=== PATIENT | male | born 1955 | race Caucasian/White ===

== ENCOUNTER → 2017-05-05 | Outpatient (CLI) | payer OTHER ==
[~2017-05-05] MED LIST: ASPI325T39 PO; BUPR-83 PO; DIAZ-165 PO; GLC500 PO; GLUCTAB7 PO; LISI-461 PO; OMEG10007 PO; SAW450CA5 PO; SERT-234 PO; TEST1GEL12 TOP; VITACAP26 PO; ZINC1TAB4 PO
[2017-05-05 17:08] LABS: BASO % 0.6 %; BASO ABS # 0.05 K/uL (0-0.2); COMPLETE YES; EOS % 6.4 %; HEMATOCRIT 42.7 % (42-52); IG% 0.4 %; LYMPH % 42.2 %; LYMPH ABS # 3.34 K/uL (1.2-3.4); MEAN CELL VOLUME 89.9 fL (80-100); MEAN CORPUSCULAR HEMOGLOBIN 30.5 pg (25-34); MEAN PLATELET VOLUME 10.9 fL (7.4-10.4); NEUT % 40.4 %; PLATELET COUNT 283 K/uL (130-400); RED BLOOD COUNT 4.75 M/uL (4.7-6.1); WHITE BLOOD COUNT 7.92 K/uL (4.8-10.8)
[2017-05-05 17:38] LABS: ALT/SGPT 25 U/L (12-78); AST/SGOT 13 U/L (15-37); BLOOD UREA NITROGEN 17 mg/dl (7-18); CALCIUM 8.6 mg/dl (8.5-10.1); CARBON DIOXIDE 27 mmol/L (21-32); CHLORIDE 106 mmol/L (98-107); CHOLESTEROL 179 mg/dl (0-200); CREATININE 0.94 mg/dl (0.60-1.40); GLUCOSE 101 mg/dl (70-99); POTASSIUM 4.4 mmol/L (3.5-5.1); SODIUM 139 mmol/L (136-145); TRIGLYCERIDES 168 mg/dl (0-150); VERY LOW DENSITY LIPOPROT CALC 34 mg/dl
[2017-05-05 17:47] LABS: ALB/GLOB RATIO 0.9 (0.9-2); ALKALINE PHOSPHATASE 88 U/L (45-117); HDL CHOLESTEROL 30 mg/dl; LDL CHOLESTEROL CALCULATED 115 mg/dl; TOTAL IRON BINDING CAPACITY 322 mcg/dl (250-450)
[2017-05-06 06:09] LABS: ESTIMATED AVERAGE GLUCOSE 128 mg/dl; HA1C FLAG Normal (Normal)
== END | disposition home or self-care (01) ==
LOC: C.LABBC 14:16
PROVIDERS: ATTEND Family Medicine
DX: E88.81 Metabolic syndrome and other insulin resistance (principal); E55.9 Vitamin D deficiency, unspecified; D51.9 Vitamin B12 deficiency anemia, unspecified; E78.9 Disorder of lipoprotein metabolism, unspecified; R53.83 Other fatigue

== ENCOUNTER 2023-09-21 17:29 | Inpatient (IN) ==
--- NOTE | 2023-09-21 17:54 | Emergency Department Note ---
History of Present Illness General Chief complaint: Shortness of Breath/Dyspnea Stated complaint: SHORTNESS OF BREATH Time Seen by Provider: 09/21/23 17:40 Source: patient, RN notes reviewed and old records reviewed (08/18/23-outpatient primary care visit for wellness) Mode of arrival: ambulatory Limitations: no limitations History of Present Illness This patient is a 67-year-old male who comes in with shortness of breath. He states he was short of breath for quite a while he got better after he lost some weight over the last 2 days its gotten worse is mostly dyspnea on exertion. no chest pain. No diaphoresis. No neck or back pain has had some nausea no fever or chills no blood or melena stool no abdominal pain no urinary symptoms no fever chills no focal numbness or weakness he does have an inhaler which she had no change with he does have history of mild COPD no lower extremity pain or swelling no recent weight loss or gain. Home Medications Medication Instructions Recorded Confirmed Type ascorbic acid (vitamin C) 1,000 mg 1 g PO QAM 11/05/18 09/21/23 History tablet (Vitamin C) glucosamine sulf dipot 1 cap PO QAM 11/05/18 09/21/23 History chlr,msm,chond 550 mg-C 30 mg-allie 1 mg capsule (Glucosamine Chondroitin) omega 0-lpw-umn-fish oil 1,000 mg 1 cap PO QAM 11/05/18 09/21/23 History (120 mg-180 mg) capsule (Fish Oil) saw palmetto 450 mg capsule 450 mg PO QAM 11/05/18 09/21/23 History zinc gluconate 100 mg tablet 100 mg PO QAM 11/05/18 09/21/23 History cyekfbj-nqmzjzqgqzaah-shwxaoxi 250 1 tab PO DIRECTED PRN HEADACHES 07/04/22 09/21/23 History mg-250 mg-65 mg tablet (Excedrin Extra Strength) ibuprofen 200 mg tablet 400 mg PO BID PRN Pain 07/08/22 09/21/23 History albuterol sulfate 90 mcg/actuation 1 inh inhalation QID PRN Shortness 12/25/22 09/21/23 History aerosol inhaler Of Breath Or Wheezing bupropion HCl 450 mg 24 hr tablet, 450 mg PO DAILY #90 tabs 07/02/23 09/21/23 Rx extended release levothyroxine 25 mcg tablet 25 mcg PO QAM #90 tabs 07/02/23 09/21/23 Rx lisinopril 10 mg tablet 10 mg PO QAM #90 tabs 07/02/23 09/21/23 Rx testosterone 1 % (50 mg/5 gram) 1 packet transdermal DAILY #150 07/02/23 09/21/23 Rx transdermal gel packet grams diazepam 5 mg tablet 5 mg PO QID PRN Anxiety #120 tabs 07/14/23 09/21/23 Rx fluticasone 100 mcg-salmeterol 50 1 inh inhalation BID #3 Inhalers 07/24/23 09/21/23 Rx mcg/dose blistr powdr for inhalation (Wixela Inhub) gabapentin 100 mg capsule 100 mg PO TID #60 caps 07/30/23 09/21/23 Rx diclofenac potassium 50 mg tablet 50 mg PO TID PRN pain #30 tabs 08/18/23 09/21/23 Rx sertraline 100 mg tablet 150 mg (1.5 x 100 mg) PO QAM #45 08/28/23 09/21/23 Rx tabs Allergies Allergy/AdvReac Type Severity Reaction Status Date / Time No Known Allergies Allergy Verified 09/21/23 19:03 Past Med/Surg History Medical History Vomiting Abdominal pain Kidney lesion, [place], left Dyspnea Positive colorectal cancer screening using Cologuard test Dyspnea on exertion History of tobacco abuse Multiple pulmonary nodules determined by computed tomography of lung Lumbar vertebral fracture r/t recent fall. (~06/23/20) Per 06/23/[address] scan= " Subtle age-indeterminate fracture along the left lateral inferior endplate of T11 extending into a left lateral osteophyte. Likely chronic fracture of a left lateral osteophyte at L2. No acute compression deformity or retropulsion identified." H/O retained foreign body fully removed splinter from left arm Positive colorectal cancer screening using Cologuard test Encounter for pre-operative examination Osteoarthritis Hypothyroidism Prediabetes Melanoma of back Depression Hypertension Sleep apnea cpap Melanoma Anxiety and depression Surgical History S/P rotator cuff surgery History of total right hip replacement History of colonoscopy History of Mohs micrographic surgery for skin cancer History of wisdom tooth extraction Family History Aunt Family history of diabetes mellitus Father Lung cancer Grandfather Stroke Myocardial infarction Grandmother Stroke Myocardial infarction Other No family history of adverse response to anesthesia Denies family history of Ovarian cancer Prostate cancer Breast cancer Colorectal cancer Social History Smoking Status: Former smoker Tobacco Type: Cigarettes Age Started Using Tobacco: 20; Age Quit Using Tobacco: 62; packs per day: 0.5; Cigarettes Per Day: 10; Smoking End Date: 3 years ago; Second Hand Exposure: No; Do You Dip or Chew Tobacco: No; Tobacco Cessation Education Requested by Patient: No Hx Alcohol Use: No Hx Substance Use: No Preferred Language: Cambodian Communication Ability: Effective Visual Impairment: Partially Limited School Transportation Director Required: No Beliefs That Will Affect Care: None Current Living Situation: Alone current occupational status: retired How many Children do You have: 0 Other Information That Helps Us Care for You: No Feels Safe at Home: Yes Safety Concerns: Feels Safe At This Time Childhood Exposure to Second-Hand Smoke: No caffeine: Yes Dental Care, Regularly: Yes Physical Activity Frequency: Does not Exercise Seatbelt Use: always Sunscreen Use: No Assistive Devices: CPAP and Glasses Review of Systems A total of 10 systems reviewed and were otherwise negative Physical Exam Vital Signs Vital Signs - 24 hr 09/21/23 17:33 09/21/23 17:51 09/21/23 17:51 Temperature 36.9 C Temperature Source Temporal Artery Scan Pulse Rate 74 Pulse Rate [Apical] 72 Respiratory Rate 18 24 Respiratory Effort / Characteristics Non-Labored Respiratory Depth Normal Normal Blood Pressure 169/114 H Blood Pressure [Right Arm] 180/102 H Blood Pressure Mean 132 Blood Pressure Mean [Right Arm] 128 Blood Pressure Position Sitting Pulse Oximetry 92 94 Oxygen Delivery Method Room Air Room Air Room Air Oxygen Flow Rate 94 Sepsis Recent Fever Within 48 Hours No Sepsis New/Unexplained Change in Mental Status N/A Sepsis Action Taken by Nursing No Action Required 09/21/23 17:54 09/21/23 17:55 Temperature Temperature Source Pulse Rate 76 Pulse Rate [Apical] Respiratory Rate Respiratory Effort / Characteristics Respiratory Depth Blood Pressure Blood Pressure [Right Arm] Blood Pressure Mean Blood Pressure Mean [Right Arm] Blood Pressure Position Pulse Oximetry 94 Oxygen Delivery Method Room Air Oxygen Flow Rate Sepsis Recent Fever Within 48 Hours Sepsis New/Unexplained Change in Mental Status Sepsis Action Taken by Nursing General: Well developed well nourished oqn-vsl-ehjclytyb older male who in no acute distress, breathing comfortably on room air. Normal speech HEENT: Normal cephalic atraumatic. Pupils are equal round and reactive to light. Sclera are anicteric. extraocular movements are intact. Oropharynx is pink with moist mucous membranes. No swelling of the mouth lips or tongue. Neck: Supple with a midline trachea. No meningeal signs or stiffness, no JVD or bruits. No Stridor. Chest: Clear to auscultation on the left but diminished on the right. No increased work of breathing. Heart: Regular rate and rhythm without murmurs or gallops. Abdomen: Soft nontender, nondistended without rebound guarding or rigidity. Extremities: No cyanosis clubbing or edema. No calf tenderness or assymetry Spine/Back. Non tender to palpation. No CVA tenderness Skin: Good turgor without rashes. Neurologic exam: Cranial nerves two through 12 are intact. Motor and sensation are intact and symmetrical throughout. Course Administered Medications Gabapentin (Gabapentin 100 Mg Cap) 100 mg PO TID [facility] Stop: 10/21/23 21:05 Last Admin: 09/21/23 21:36 Dose: 100 mg Documented By: ALONZO Potassium Chloride/Sodium Chloride (Normal Saline W/20 Meq Kcl) 20 meq in 1,000 mls @ 60 mls/hr IV .[id number] [facility] Stop: 10/21/23 21:05 Last Admin: 09/21/23 21:36 Dose: 60 mls/hr Documented By: ALONZO Discontinued Medications Piperacillin Sod/Tazobactam Sod (Zosyn) 4.5 gm in 100 mls @ 200 mls/hr IV NOW ONE Stop: 09/21/23 19:31 Last Infusion: 09/21/23 20:57 Dose: Infused Documented By: MARIA ISABEL Admin: 09/21/23 20:26 Dose: 200 mls/hr Documented By: RAJAT Ioversol (Optiray 320 125ml) 117 ml IV ONCE ONE Stop: 09/21/23 18:42 Last Admin: 09/21/23 18:41 Dose: 117 ml Documented By: CORINA Critical Care Time Critical Care Time: Yes Total Critical Care Time: 30 Due to the patient's chief complaint of shortness of breath with some mild hypoxemia, decreased breath sounds and concern for acute pulmonary issues with stat chest x-ray and workup needed as well as consultation and frequent reassessment and as well as IV antibiotics and supplemental oxygen, I have personally spent greater than 30 minutes of critical care time in the direct management of this patient. This includes bedside care, interpretation of diagnostic studies, and testing, discussion with consultants, patient, and family members, and other required patient management activities. This 30 minutes is in excess of all separately billable procedures. Medical Decision Making Differential Diagnosis Acute coronary syndrome, arrhythmia, pneumothorax, pulmonary effusion, infection, PE, electrolyte or metabolic Medical Records Attestation: I reviewed the patient's medical records. Home Medications Current Medication List: was personally reviewed by me Laboratory Data Attestation: I reviewed the patient's lab results. 09/21/23 17:45 09/21/23 17:45 Lab Results 09/21/23 09/21/23 09/21/23 Range/Units 17:45 18:18 19:22 WBC 7.97 (4.8-10.8) K/ul RBC 4.65 L (4.70-6.10) M/uL Hgb 14.2 (14.0-18.0) g/dl Hct 42.4 (42.0-52.0) % MCV 91.2 (80.0-100.0) fL MCH 30.5 (25.0-34.0) pg MCHC 33.5 (32.0-36.0) g/dL RDW Std Deviation 41.5 (36.4-46.3) fL RDW Coeff of Fito 12.4 (11.5-14.5) % Plt Count 382 (130-400) K/uL MPV 9.3 L (9.4-12.4) fL Immature Gran % (Auto) 0.3 % Neut % (Auto) 58.7 % Lymph % (Auto) 23.7 % Pierce % (Auto) 9.8 % Eos % (Auto) 6.5 % Baso % (Auto) 1.0 % Neut # (Auto) 4.68 (1.40-6.50) K/uL Lymph # (Auto) 1.89 (1.20-3.40) K/uL Pierce # (Auto) 0.78 H (0.11-0.59) K/uL Eos # (Auto) 0.52 H (0.00-0.50) K/uL Baso # (Auto) 0.08 (0.00-0.20) K/uL Immature Gran # (Auto) 0.02 (0.01-0.20) K/uL PT 11.4 (9.0-12.0) Seconds INR 1.0 (0.9-1.1) APTT 32 H (21-31) Seconds PTT Ratio 1.1 D-Dimer 1600 H* (0-500) ug/L FEU Sodium 137 (136-145) mmol/L Potassium 3.7 (3.5-5.1) mmol/L Chloride 103 (98-107) mmol/L Carbon Dioxide 25 (21-32) mmol/L Anion Gap 9 (3-11) BUN 9 (6-23) mg/dl Creatinine 0.81 (0.6-1.4) mg/dl Est Cr Clr Drug Dosing 107.5 ml/min Est GFR ( Amer) 105.8 ml/min Est GFR (Non-Af Amer) 91.3 ml/min BUN/Creatinine Ratio 11.1 (10-20) Glucose 99 (70-99(Fasting)) mg/dl Lactate 1.0 (0.4-2.0) mmol/L Calcium 9.1 (8.6-10.3) mg/dl Total Bilirubin 0.4 (0.2-1.0) mg/dl AST 16 (13-39) U/L ALT 13 (7-52) U/L Alkaline Phosphatase 109 H (34-104) U/L Troponin I High Sens 8.7 (0-20) pg/ml Total Protein 7.1 (6.0-8.3) gm/dl Albumin 3.8 (3.4-5.0) gm/dl Globulin 3.3 (2.5-4.0) gm/dl Albumin/Globulin Ratio 1.2 (0.9-2) Lipase 13 (11-82) U/L Procalcitonin < 0.02 (0-0.5) ng/ml Adenovirus (PCR) Not Detected (NotDetected) B. pertussis DNA (PCR) Not Detected (NotDetected) B.parapertussis DNA PCR Not Detected (NotDetected) C. pneumoniae DNA (PCR) Not Detected (NotDetected) Coronavirus OC43 (PCR) Not Detected (NotDetected) Coronavirus HKU1 (PCR) Not Detected (NotDetected) Coronavirus 229E (PCR) Not Detected (NotDetected) SARS-CoV-2 (PCR) Not Detected (NotDetected) Coronavirus NL63 (PCR) Not Detected (NotDetected) Human Metapneumovir PCR Not Detected (NotDetected) Influenza Type A (PCR) Not Detected (NotDetected) Influenza Type B (PCR) Not Detected (NotDetected) M. pneumoniae (PCR) Not Detected (NotDetected) Parainfluenza 1 (PCR) Not Detected (NotDetected) Parainfluenza 2 (PCR) Not Detected (NotDetected) Parainfluenza 3 (PCR) Not Detected (NotDetected) Parainfluenza 4 (PCR) Not Detected (NotDetected) RSV (PCR) Not Detected (NotDetected) Entero/Rhino (PCR) Not Detected (NotDetected) Imaging Data Attestation: I personally reviewed and interpreted this imaging study as follows: My Impression: Chest x-raythere is a large pleural effusion on the right. No pneumothorax seen. Radiologist's Impression: Chest X-Ray 09/21/23 17:48 XR chest 1V portable CLINICAL HISTORY: Chest pain, nonspecific TECHNIQUE: Single frontal radiograph of the chest was obtained. Comparison: Comparison is made to chest radiograph 08/18/2023 FINDINGS: No lines and tubes are seen. Cardiomegaly is noted. The lungs are clear. Large pleural effusion is seen. IMPRESSION: Interval development of a large right pleural effusion with underlying atelectasis. ACT 112: Negative or not required by law. Electronically signed by: Say Duffy M.D. 09/21/2023 6:20 PM Chest CTA 09/21/23 18:02 CT angio chest PE protocol CLINICAL HISTORY: PE TECHNIQUE: Multidetector row helical CT of the chest was performed with angiographic protocol. Coronal and sagittal reformations were obtained. Coronal and sagittal MIPS were obtained from the axial data set and were submitted for review. Automated dose lowering techniques and/or adjustment according to patient size were utilized for this exam. CT DOSE: 966.77 mGy.cm Comparison: Comparison is made to CT chest 07/01/2023 and chest radiograph 09/21/2023 FINDINGS: Lungs and pleura: Large right pleural effusion is seen with underlying atelectasis. A few small consolidative densities are seen in the left upper lobe. Heart and pericardium: Heart size is normal. No pericardial effusion. Vessels: No evidence of pulmonary embolism. Mediastinum and mickey: Unremarkable. Chest wall and lower neck: Unremarkable. Abdomen: Partial visualization of left renal cyst seen on prior CT. Bones: Degenerative changes in the thoracic spine. Subacute appearing fractures of the anterior right ribs noted. A few sclerotic foci in the left ribs may represent bone islands. IMPRESSION: 1. No evidence of pulmonary embolus. Large right pleural effusion seen with underlying atelectasis. 2. A few tiny foci of consolidative densities in the left upper lobe may represent infectious/inflammatory process. ACT 112: Negative or not required by law. Electronically signed by: Say Duffy M.D. 09/21/2023 6:51 PM ECG Data Attestation: I personally reviewed and interpreted this ECG as follows: Indication: + SOB/dyspnea Rate (beats per minute): 75 Rhythm: + normal sinus ECG Intervals/blocks: + Normal QRS, + Normal QT and + Normal NC ECG [place]: + Normal ECG ST segments: + Normal ST segments ECG Findings: no PACs or no PVCs Comparison ECG Date: from (11/15/22) Change: no significant change MDM Narrative This patient comes in as described above. He is placed in room C3 . he looks well on my exam and his symptoms are mostly dyspnea on exertion. He has no wheezes I was concerned his breath sounds sound diminished on the right compared to the left so I got a chest x-ray EKG and multiple blood testing he was reassessed frequently. I called radiology to get this done stat and they did. He does not have a pneumothorax but has a large pleural effusion. He has nothing else to suggest infection at this point he has no white count or fever and has had no recent cough. I did order bio fire as well which was unremarkable. His D-dimer was mildly elevated so a CT angiography was obtained and shows no PE there is a pleural effusion there may be some inflammatory areas. I did add blood cultures lactic acid and procalcitonin and the lactic acid and procalcitonin within normal limits which would go against sepsis he was given antibiotics with Zosyn 4.5 g IV to cover the possible infection. This could be related to other pulmonary etiology such as malignancy or cardiac. At this point there is no evidence of PE. I do think he needs to be admitted/observed he may need further pulmonary workup with potentially bronchoscopy and or thoracentesis. I have discussed the case at length with Dr. Vazquez who promptly came in and saw the patient ER. The patient was placed on oxygen nasal cannula 2 L as his O2 sat was in the low 90s but he was breathing very comfortably at rest and his symptoms were dyspnea on exertion. Continuous cardiac monitoring. Orders placed in EMR for continuous sulky driver call upon my evaluation patient noted to be in normal sinus rhythm with a rate of 70 Impression & Plan SOB (shortness of breath), Pleural effusion, D-dimer, elevated, History of COPD, Lab test negative for COVID-19 virus Discharge Plan Visit Data Chief Complaint: Shortness of Breath/Dyspnea Stated Complaint: SHORTNESS OF BREATH ED Provider: Victor Manuel Ornelas Discharge Problem: SOB (shortness of breath), Pleural effusion, D-dimer, elevated, History of COPD, Lab test negative for COVID-19 virus Patient Disposition: Admitted As Inpatient Discharge Instructions Interventions: ED Discharge Assessment Last Done: 09/21/23 20:51
[2023-09-21 18:01] LABS: Basophils # (auto) 0.08 K/uL (0.00-0.20); Eosinophils # (auto) 0.52 K/uL (0.00-0.50); Eosinophils % (auto) 6.5 %; Hematocrit (blood only) 42.4 % (42.0-52.0); Hemoglobin 14.2 g/dl (14.0-18.0); Immature Granulocytes # (auto) 0.02 K/uL (0.01-0.20); Immature Granulocytes % (auto) 0.3 %; Lymphocytes # (auto) 1.89 K/uL (1.20-3.40); Lymphocytes % (auto) 23.7 %; Mean Corpuscular Hemoglobin 30.5 pg (25.0-34.0); Mean Corpuscular Hgb Conc 33.5 g/dL (32.0-36.0); Mean Corpuscular Volume 91.2 fL (80.0-100.0); Mean Platelet Volume 9.3 fL (9.4-12.4); Monocytes # (auto) 0.78 K/uL (0.11-0.59); Monocytes % (auto) 9.8 %; Neutrophils # (auto) 4.68 K/uL (1.40-6.50); Neutrophils % (auto) 58.7 %; Platelet Count 382 K/uL (130-400); RDW Coefficient of Variation 12.4 % (11.5-14.5); RDW Standard Deviation 41.5 fL (36.4-46.3); Red Blood Count 4.65 M/uL (4.70-6.10); White Blood Count 7.97 K/ul (4.8-10.8)
--- NOTE | 2023-09-21 18:23 | XRay Report ---
XR chest 1V portable CLINICAL HISTORY: Chest pain, nonspecific TECHNIQUE: Single frontal radiograph of the chest was obtained. Comparison: Comparison is made to chest radiograph 08/18/2023 FINDINGS: No lines and tubes are seen. Cardiomegaly is noted. The lungs are clear. Large pleural effusion is se en. IMPRESSION: Interval development of a large right pleural effusion with underlying atelectasis. ACT 112: Negative or not required by law. Electronically signed by: Say Duffy M.D. 09/21/2023 6:20 PM
[2023-09-21 18:27] LABS: Albumin Globulin Ratio 1.2 (0.9-2); Albumin Level 3.8 gm/dl (3.4-5.0); BUN Creatinine Ratio 11.1 (10-20); Bilirubin,Total 0.4 mg/dl (0.2-1.0); Calcium 9.1 mg/dl (8.6-10.3); Creatinine Clr Calc Pharmacy 107.5 ml/min; Est GFR (African American) 105.8 ml/min; Est GFR (Non-African American) 91.3 ml/min; Globulin 3.3 gm/dl (2.5-4.0); Potassium 3.7 mmol/L (3.5-5.1); Total Protein 7.1 gm/dl (6.0-8.3)
[2023-09-21 18:30] LABS: Partial Thromboplastin Ratio 1.1; Partial Thromboplastin Time 32 Seconds (21-31); Prothrombin Time 11.4 Seconds (9.0-12.0)
[2023-09-21 18:33] LABS: D Dimer 1600 ug/L FEU (0-500); Troponin I High Sensitivity 8.7 pg/ml (0-20)
[2023-09-21] MEDS: OPTIRAY 320 125ml IV ONE (18:41)
--- NOTE | 2023-09-21 18:54 | CT Scan Report ---
CT angio chest PE protocol CLINICAL HISTORY: PE TECHNIQUE: Multidetector row helical CT of the chest was performed with angiographic protocol. Cano l and sagittal reformations were obtained. Coronal and sagittal MIPS were obtained from the axial peter a set and were submitted for review. Automated dose lowering techniques and/or adjustment according to patient size were utilized for this exam. CT DOSE: 966.77 mGy.cm Comparison: Comparison is made to CT chest 07/01/2023 and chest radiograph 09/21/2023 FINDINGS: Lungs and pleura: Large right pleural effusion is seen with underlying atelectasis. A few small conso lidative densities are seen in the left upper lobe. Heart and pericardium: Heart size is normal. No pericardial effusion. Vessels: No evidence of pulmonary embolism. Mediastinum and mickey: Unremarkable. Chest wall and lower neck: Unremarkable. Abdomen: Partial visualization of left renal cyst seen on prior CT. Bones: Degenerative changes in the thoracic spine. Subacute appearing fractures of the anterior right ribs noted. A few sclerotic foci in the left ribs may represent bone islands. IMPRESSION: 1. No evidence of pulmonary embolus. Large right pleural effusion seen with underlying atelectasis. 2. A few tiny foci of consolidative densities in the left upper lobe may represent infectious/inflam matory process. ACT 112: Negative or not required by law. Electronically signed by: Say Duffy M.D. 09/21/2023 6:51 PM
[2023-09-21 19:29] LABS: Adenovirus PCR Not Detected (NotDetected); Bordetella parapertussis PCR Not Detected (NotDetected); Bordetella pertussis PCR Not Detected (NotDetected); Chlamydia pneumoniae PCR Not Detected (NotDetected); Coronavirus 229E PCR Not Detected (NotDetected); Coronavirus CoV-2 (COVID19)PCR Not Detected (NotDetected); Coronavirus HKU1 PCR Not Detected (NotDetected); Coronavirus NL63 PCR Not Detected (NotDetected); Coronavirus OC43PCR Not Detected (NotDetected); Human Metapneumovirus PCR Not Detected (NotDetected); Influenza A PCR Not Detected (NotDetected); Influenza B PCR Not Detected (NotDetected); Mycoplasma pneumoniae PCR Not Detected (NotDetected); Parainfluenza Virus 1 PCR Not Detected (NotDetected); Parainfluenza Virus 2 PCR Not Detected (NotDetected); Parainfluenza Virus 3 PCR Not Detected (NotDetected); Parainfluenza Virus 4 PCR Not Detected (NotDetected); Respiratory Syncytial VirusPCR Not Detected (NotDetected); Rhinovirus/Enterovirus PCR Not Detected (NotDetected)
--- NOTE | 2023-09-21 20:01 | History & Physical Report ---
Date of Service September 21, 2023 Assessment & Plan (1) Pleural effusion, right: (2) Multiple pulmonary nodules determined by computed tomography of lung: (3) History of tobacco abuse: (4) Dyspnea on exertion: (5) COPD (chronic obstructive pulmonary disease): (6) GERD (gastroesophageal reflux disease): (7) Hypertension: (8) Mood disorder: (9) Impaired glucose tolerance: (10) Hypothyroidism: Plan Large right pleural effusion/known pulmonary nodules/tobacco abuse history- Primary symptom that of worsening dyspnea on exertion especially in the past couple days Pleural effusion is new compared to 08/18/2023 Not likely to improve with furosemide 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 Quevedo Would likely benefit from thoracentesis for diagnostic and therapeutic purposes Will defer thoracentesis to Dr. Quevedo or interventional IR to perform Nasal cannula oxygen, titrate to keep pulse ox 92-94% He did receive a single dose of Zosyn 4.5 g IV from the ED [employer] testing negative D-dimer 1600, with CTA negative for PE Continue routine inhalers DuoNebs every 2 hours as needed N.p.o. after midnight NSS plus KCl 20 mEq at 80 mL/h x 1 L Mood disorder- Continue sertraline, gabapentin and bupropion Hypotestosteronism- Testosterone transdermal gel to continue History of Present Illness Chief Complaint: The patient presents to the emergency department with worsening shortness of breath for the past several days, in particular worsening over the past 2 days. Primary Care Provider: Ming Cole MD The patient is a 67-year-old male with past medical history including COPD, cervical disc disease, small vessel disease, history of tobacco abuse, hypothyroidism, mood disorder, hypertension, GERD, multiple pulmonary nodules followed routinely by pulmonology. The patient presents to the emergency department with worsening shortness of breath, and was noted to have a chest x- ray this visit showing a large right pleural effusion, that is new since 08/18/2023. Patient denies any recent travels or sick exposures, and has not had these symptoms in the past. He does follow regularly with pulmonology, for follow-up of pulmonary nodules, and was last seen on 07/22/2023. Allergies Allergy/AdvReac Type Severity Reaction Status Date / Time No Known Allergies Allergy Verified 09/21/23 19:03 Home Medications Medication Instructions Recorded Confirmed Type ascorbic acid (vitamin C) 1,000 mg 1 g PO QAM 11/05/18 09/21/23 History tablet (Vitamin C) glucosamine sulf dipot 1 cap PO QAM 11/05/18 09/21/23 History chlr,msm,chond 550 mg-C 30 mg-allie 1 mg capsule (Glucosamine Chondroitin) omega 1-ixa-gdn-fish oil 1,000 mg 1 cap PO QAM 11/05/18 09/21/23 History (120 mg-180 mg) capsule (Fish Oil) saw palmetto 450 mg capsule 450 mg PO QAM 11/05/18 09/21/23 History zinc gluconate 100 mg tablet 100 mg PO QAM 11/05/18 09/21/23 History kgdnpvh-ycawbsngrpnaz-cwtuidsg 250 1 tab PO DIRECTED PRN HEADACHES 07/04/22 09/21/23 History mg-250 mg-65 mg tablet (Excedrin Extra Strength) ibuprofen 200 mg tablet 400 mg PO BID PRN Pain 07/08/22 09/21/23 History albuterol sulfate 90 mcg/actuation 1 inh inhalation QID PRN Shortness 12/25/22 09/21/23 History aerosol inhaler Of Breath Or Wheezing bupropion HCl 450 mg 24 hr tablet, 450 mg PO DAILY #90 tabs 07/02/23 09/21/23 Rx extended release levothyroxine 25 mcg tablet 25 mcg PO QAM #90 tabs 07/02/23 09/21/23 Rx lisinopril 10 mg tablet 10 mg PO QAM #90 tabs 07/02/23 09/21/23 Rx testosterone 1 % (50 mg/5 gram) 1 packet transdermal DAILY #150 07/02/23 09/21/23 Rx transdermal gel packet grams diazepam 5 mg tablet 5 mg PO QID PRN Anxiety #120 tabs 07/14/23 09/21/23 Rx fluticasone 100 mcg-salmeterol 50 1 inh inhalation BID #3 Inhalers 07/24/23 09/21/23 Rx mcg/dose blistr powdr for inhalation (Wixela Inhub) gabapentin 100 mg capsule 100 mg PO TID #60 caps 07/30/23 09/21/23 Rx diclofenac potassium 50 mg tablet 50 mg PO TID PRN pain #30 tabs 08/18/23 Rx sertraline 100 mg tablet 150 mg (1.5 x 100 mg) PO QAM #45 08/28/23 09/21/23 Rx tabs Past Med/Surg History Medical History Vomiting Abdominal pain Kidney lesion, pechanga, left Dyspnea Positive colorectal cancer screening using Cologuard test Dyspnea on exertion History of tobacco abuse Multiple pulmonary nodules determined by computed tomography of lung Lumbar vertebral fracture r/t recent fall. (~06/23/20) Per 06/23/[address] scan= " Subtle age-indeterminate fracture along the left lateral inferior endplate of T11 extending into a left lateral osteophyte. Likely chronic fracture of a left lateral osteophyte at L2. No acute compression deformity or retropulsion identified." H/O retained foreign body fully removed splinter from left arm Positive colorectal cancer screening using Cologuard test Encounter for pre-operative examination Osteoarthritis Hypothyroidism Prediabetes Melanoma of back Depression Hypertension Sleep apnea cpap Melanoma Anxiety and depression Surgical History S/P rotator cuff surgery History of total right hip replacement History of colonoscopy History of Mohs micrographic surgery for skin cancer History of wisdom tooth extraction Family History Aunt Family history of diabetes mellitus Father Lung cancer Grandfather Stroke Myocardial infarction Grandmother Stroke Myocardial infarction Other No family history of adverse response to anesthesia Denies family history of Ovarian cancer Prostate cancer Breast cancer Colorectal cancer Social History Smoking Status: Former smoker Tobacco Type: Cigarettes Age Started Using Tobacco: 20; Age Quit Using Tobacco: 62; packs per day: 0.5; Cigarettes Per Day: 10; Smoking End Date: 3 years ago; Second Hand Exposure: No; Do You Dip or Chew Tobacco: No; Tobacco Cessation Education Requested by Patient: No Hx Alcohol Use: No Hx Substance Use: No Preferred Language: Uzbek Communication Ability: Effective Visual Impairment: Partially Limited Shirt Closer Required: No Beliefs That Will Affect Care: None Current Living Situation: Alone current occupational status: retired How many Children do You have: 0 Other Information That Helps Us Care for You: No Feels Safe at Home: Yes Safety Concerns: Feels Safe At This Time Childhood Exposure to Second-Hand Smoke: No caffeine: Yes Dental Care, Regularly: Yes Physical Activity Frequency: Does not Exercise Seatbelt Use: always Sunscreen Use: No Assistive Devices: CPAP and Glasses Review of Systems Review of Systems: the patient denies chest pain, palpitations, lower extremity swelling, sore throat, fevers, chills, sweats, nausea, vomiting, diarrhea , constipation, abdominal pain, pelvic pain, blood in urine or stool, dysuria, urinary frequency or urgency, lightheadedness, dizziness, headache, memory loss, loss of consciousness, rash, abnormal bruising or bleeding, imbalance, focal or generalized weakness, numbness or tingling in arms or legs, generalized arthralgias or myalgias, back or neck pain, or night sweats. The review of systems is otherwise negative other than for that already noted above, and at least 10 systems have been reviewed. Physical Exam Physical Exam: The patient is awake, alert and oriented 3, well developed and well nourished, normocephalic and atraumatic, sitting upright in bed and in no acute distress. HEENT--PERRL, EOMI, mucous membranes and oropharynx normal Neck--supple. No JVD. No bruits. Thyroid normal, trachea midline, no adenopathy. Heart--normal S1 and S2. No murmurs, rubs or gallops. Lungs--decreased breath sounds right base, otherwise normal examination. No respiratory distress, no accessory muscle use. Abdomen--normal bowel sounds and soft. Nontender. Nondistended. Obese Extremities--no cyanosis or clubbing. No edema. Dermatologic--normal skin turgor, normal color, no abnormal lymph nodes, no joellen h. Neurologic--cranial nerves II through XII grossly intact. Rheumatologic--normal range of motion. Psychiatric--normal affect. Results & Data Results & Data Vital Signs (Past 12 Hours) Vital Signs Temp Pulse Pulse Resp BP BP Pulse Ox 09/21/23 17:55 76 09/21/23 17:54 94 09/21/23 17:51 72 24 180/102 H 94 09/21/23 17:51 09/21/23 17:33 36.9 C 74 18 169/114 H 92 O2 Del Method O2 Flow Rate 09/21/23 17:55 09/21/23 17:54 Room Air 09/21/23 17:51 Room Air 09/21/23 17:51 Room Air 94 09/21/23 17:33 Room Air Laboratory Results Laboratory Results WBC 7.97 K/ul (4.8-10.8) 09/21/23 17:45 RBC 4.65 M/uL (4.70-6.10) L 09/21/23 17:45 Hgb 14.2 g/dl (14.0-18.0) 09/21/23 17:45 Hct 42.4 % (42.0-52.0) 09/21/23 17:45 MCV 91.2 fL (80.0-100.0) 09/21/23 17:45 MCH 30.5 pg (25.0-34.0) 09/21/23 17:45 MCHC 33.5 g/dL (32.0-36.0) 09/21/23 17:45 RDW Std Deviation 41.5 fL (36.4-46.3) 09/21/23 17:45 RDW Coeff of Fito 12.4 % (11.5-14.5) 09/21/23 17:45 Plt Count 382 K/uL (130-400) 09/21/23 17:45 MPV 9.3 fL (9.4-12.4) L 09/21/23 17:45 Immature Gran % (Auto) 0.3 % 09/21/23 17:45 Neut % (Auto) 58.7 % 09/21/23 17:45 Lymph % (Auto) 23.7 % 09/21/23 17:45 Barber % (Auto) 9.8 % 09/21/23 17:45 Eos % (Auto) 6.5 % 09/21/23 17:45 Baso % (Auto) 1.0 % 09/21/23 17:45 Neut # (Auto) 4.68 K/uL (1.40-6.50) 09/21/23 17:45 Lymph # (Auto) 1.89 K/uL (1.20-3.40) 09/21/23 17:45 Barber # (Auto) 0.78 K/uL (0.11-0.59) H 09/21/23 17:45 Eos # (Auto) 0.52 K/uL (0.00-0.50) H 09/21/23 17:45 Baso # (Auto) 0.08 K/uL (0.00-0.20) 09/21/23 17:45 Immature Gran # (Auto) 0.02 K/uL (0.01-0.20) 09/21/23 17:45 PT 11.4 Seconds (9.0-12.0) 09/21/23 17:45 INR 1.0 (0.9-1.1) 09/21/23 17:45 APTT 32 Seconds (21-31) H 09/21/23 17:45 PTT Ratio 1.1 09/21/23 17:45 D-Dimer 1600 ug/L FEU (0-500) H* 09/21/23 17:45 Sodium 137 mmol/L (136-145) 09/21/23 17:45 Potassium 3.7 mmol/L (3.5-5.1) 09/21/23 17:45 Chloride 103 mmol/L (98-107) 09/21/23 17:45 Carbon Dioxide 25 mmol/L (21-32) 09/21/23 17:45 Anion Gap 9 (3-11) 09/21/23 17:45 BUN 9 mg/dl (6-23) 09/21/23 17:45 Creatinine 0.81 mg/dl (0.6-1.4) 09/21/23 17:45 Est Cr Clr Drug Dosing 107.5 ml/min 09/21/23 17:45 Est GFR ( Amer) 105.8 ml/min 09/21/23 17:45 Est GFR (Non-Af Amer) 91.3 ml/min 09/21/23 17:45 BUN/Creatinine Ratio 11.1 (10-20) 09/21/23 17:45 Glucose 99 mg/dl (70-99(Fasting)) 09/21/23 17:45 Lactate 1.0 mmol/L (0.4-2.0) 09/21/23 19:22 Calcium 9.1 mg/dl (8.6-10.3) 09/21/23 17:45 Total Bilirubin 0.4 mg/dl (0.2-1.0) 09/21/23 17:45 AST 16 U/L (13-39) 09/21/23 17:45 ALT 13 U/L (7-52) 09/21/23 17:45 Alkaline Phosphatase 109 U/L (34-104) H 09/21/23 17:45 Troponin I High Sens 8.7 pg/ml (0-20) 09/21/23 17:45 Total Protein 7.1 gm/dl (6.0-8.3) 09/21/23 17:45 Albumin 3.8 gm/dl (3.4-5.0) 09/21/23 17:45 Globulin 3.3 gm/dl (2.5-4.0) 09/21/23 17:45 Albumin/Globulin Ratio 1.2 (0.9-2) 09/21/23 17:45 Lipase 13 U/L (11-82) 09/21/23 17:45 Procalcitonin < 0.02 ng/ml (0-0.5) 09/21/23 17:45 Adenovirus (PCR) Not Detected (NotDetected) 09/21/23 18:18 B. pertussis DNA (PCR) Not Detected (NotDetected) 09/21/23 18:18 B.parapertussis DNA PCR Not Detected (NotDetected) 09/21/23 18:18 C. pneumoniae DNA (PCR) Not Detected (NotDetected) 09/21/23 18:18 Coronavirus OC43 (PCR) Not Detected (NotDetected) 09/21/23 18:18 Coronavirus HKU1 (PCR) Not Detected (NotDetected) 09/21/23 18:18 Coronavirus 229E (PCR) Not Detected (NotDetected) 09/21/23 18:18 SARS-CoV-2 (PCR) Not Detected (NotDetected) 09/21/23 18:18 Coronavirus NL63 (PCR) Not Detected (NotDetected) 09/21/23 18:18 Human Metapneumovir PCR Not Detected (NotDetected) 09/21/23 18:18 Influenza Type A (PCR) Not Detected (NotDetected) 09/21/23 18:18 Influenza Type B (PCR) Not Detected (NotDetected) 09/21/23 18:18 M. pneumoniae (PCR) Not Detected (NotDetected) 09/21/23 18:18 Parainfluenza 1 (PCR) Not Detected (NotDetected) 09/21/23 18:18 Parainfluenza 2 (PCR) Not Detected (NotDetected) 09/21/23 18:18 Parainfluenza 3 (PCR) Not Detected (NotDetected) 09/21/23 18:18 Parainfluenza 4 (PCR) Not Detected (NotDetected) 09/21/23 18:18 RSV (PCR) Not Detected (NotDetected) 09/21/23 18:18 Entero/Rhino (PCR) Not Detected (NotDetected) 09/21/23 18:18 Impressions Chest X-Ray 09/21/23 17:48 XR chest 1V portable CLINICAL HISTORY: Chest pain, nonspecific TECHNIQUE: Single frontal radiograph of the chest was obtained. Comparison: Comparison is made to chest radiograph 08/18/2023 FINDINGS: No lines and tubes are seen. Cardiomegaly is noted. The lungs are clear. Large pleural effusion is seen. IMPRESSION: Interval development of a large right pleural effusion with underlying atelectasis. ACT 112: Negative or not required by law. Electronically signed by: Say Duffy M.D. 09/21/2023 6:20 PM Chest CTA 09/21/23 18:02 CT angio chest PE protocol CLINICAL HISTORY: PE TECHNIQUE: Multidetector row helical CT of the chest was performed with angiographic protocol. Coronal and sagittal reformations were obtained. Coronal and sagittal MIPS were obtained from the axial data set and were submitted for review. Automated dose lowering techniques and/or adjustment according to patient size were utilized for this exam. CT DOSE: 966.77 mGy.cm Comparison: Comparison is made to CT chest 07/01/2023 and chest radiograph 09/21/2023 FINDINGS: Lungs and pleura: Large right pleural effusion is seen with underlying atelectasis. A few small consolidative densities are seen in the left upper lobe. Heart and pericardium: Heart size is normal. No pericardial effusion. Vessels: No evidence of pulmonary embolism. Mediastinum and mickey: Unremarkable. Chest wall and lower neck: Unremarkable. Abdomen: Partial visualization of left renal cyst seen on prior CT. Bones: Degenerative changes in the thoracic spine. Subacute appearing fractures of the anterior right ribs noted. A few sclerotic foci in the left ribs may represent bone islands. IMPRESSION: 1. No evidence of pulmonary embolus. Large right pleural effusion seen with underlying atelectasis. 2. A few tiny foci of consolidative densities in the left upper lobe may represent infectious/inflammatory process. ACT 112: Negative or not required by law. Electronically signed by: Say Duffy M.D. 09/21/2023 6:51 PM Code Status & VTE Plan Code Status Full code VTE Prophylaxis Plan VTE Prophylaxis will be ordered: Yes PG Care Time/CCT Total # of Minutes Spent Total Time Spent with Patient: Total time spent is greater than 50% in coordination of care (as documented) at patient's floor/unit and/or counseling patient: Coding Level of Care Code 66510 INT INP/OBS CARE 3/75MIN Diagnoses Pleural effusion, right J90 Multiple pulmonary nodules determined by computed tomography of lung R91.8 History of tobacco abuse Z87.891 Dyspnea on exertion R06.00 COPD (chronic obstructive pulmonary disease) J44.9 GERD (gastroesophageal reflux disease) K21.9 Hypertension I10 Mood disorder F39 Impaired glucose tolerance R73.02 Hypothyroidism E03.9
[2023-09-21] MEDS: PIPERACILLIN/TAZOBACTAM 4.5 GM/100 ML BAG IV ONE (20:26)
[2023-09-21] MEDS ORDERED: ALBUT/IPRATROP 3MG/0.5MG NEB 3 ML VIAL NEB PRN (21:06)
[2023-09-21] MEDS ORDERED: ONDANSETRON INJ 2 MG/ML 2 ML VIAL IV PRN (21:06)
[2023-09-21] MEDS ORDERED: ALBUTEROL HFA 8 GM INHALER INH PRN (21:06)
[2023-09-21] MEDS: NSS + 20MEQ KCL 20 MEQ/1,000 ML BAG IV SCH (21:36)
[2023-09-21] MEDS: GABAPENTIN 100 MG CAP PO SCH (21:36)
[2023-09-22 05:40] LABS: Basophils % (auto) 1.3 %; Eosinophils # (auto) 0.78 K/uL (0.00-0.50); Eosinophils % (auto) 9.8 %; Hematocrit (blood only) 37.2 % (42.0-52.0); Hemoglobin 12.6 g/dl (14.0-18.0); Immature Granulocytes # (auto) 0.02 K/uL (0.01-0.20); Immature Granulocytes % (auto) 0.3 %; Lymphocytes # (auto) 2.26 K/uL (1.20-3.40); Lymphocytes % (auto) 28.3 %; Mean Corpuscular Hemoglobin 30.7 pg (25.0-34.0); Mean Corpuscular Hgb Conc 33.9 g/dL (32.0-36.0); Mean Corpuscular Volume 90.7 fL (80.0-100.0); Mean Platelet Volume 9.7 fL (9.4-12.4); Monocytes # (auto) 0.89 K/uL (0.11-0.59); Monocytes % (auto) 11.1 %; Neutrophils # (auto) 3.94 K/uL (1.40-6.50); Neutrophils % (auto) 49.2 %; Platelet Count 356 K/uL (130-400); RDW Coefficient of Variation 12.6 % (11.5-14.5); RDW Standard Deviation 41.6 fL (36.4-46.3); White Blood Count 7.99 K/ul (4.8-10.8)
[2023-09-22 05:54] LABS: Albumin Globulin Ratio 1.2 (0.9-2); Albumin Level 3.4 gm/dl (3.4-5.0); BUN Creatinine Ratio 9.5 (10-20); Bilirubin,Total 0.4 mg/dl (0.2-1.0); Calcium 8.4 mg/dl (8.6-10.3); Creatinine Clr Calc Pharmacy 116.4 ml/min; Est GFR (African American) 109.8 ml/min; Est GFR (Non-African American) 94.8 ml/min; Globulin 2.8 gm/dl (2.5-4.0); Potassium 3.7 mmol/L (3.5-5.1); Total Protein 6.2 gm/dl (6.0-8.3)
[2023-09-22 06:07] LABS: INR 1.1 (0.9-1.1); Partial Thromboplastin Ratio 1.2; Partial Thromboplastin Time 33 Seconds (21-31); Prothrombin Time 11.8 Seconds (9.0-12.0)
[2023-09-22] MEDS: INFLUENZA VACCINE HIGH-DOSE (HD-IIV4) PF 65+ 0.7mL SYR IM ONE (07:43)
[2023-09-22] MEDS: ZINC SULFATE 220 MG CAPSULE PO SCH (08:44)
[2023-09-22] MEDS: SERTRALINE HCL 50 MG TABLET PO SCH (08:45)
[2023-09-22] MEDS: LEVOTHYROXINE SODIUM 25 MCG TABLET PO SCH (08:45)
[2023-09-22] MEDS: ASCORBIC ACID 500 MG TAB PO SCH (08:45)
[2023-09-22] MEDS: buPROPion XL 150 MG TABCR PO SCH (08:46)
[2023-09-22] MEDS: FLUTICASONE/VILANTEROL 100/25MCG 14 PUFFS/INHALER INH SCH (08:46)
[2023-09-22] MEDS: lisinopril 10 MG TAB PO SCH (08:46)
--- NOTE | 2023-09-22 08:47 | Procedure Note ---
Procedure Note Date of Service September 22, 2023 Note Procedure: RIGHT Thoracentesis Attending: Dr. Manzano APC: Caio Ruiz PA-C Indication: Hypoxia, Large RIGHT sided effusion Anesthesia: 10 mL of Lidocaine 1% without epinephrine. Written consent was obtained and on the chart per attending providers. Prior to procedure, radiology films and pertinent labs were reviewed by myself and demonstrated a large RIGHT sided effusion. A time-out was completed verifying correct patient, procedure, site, positioning, and implant(s) or special equipment if applicable. Utilizing bedside ultrasound, chest wall was evaluated for location for optimal catheter insertion. The skin was marked using gentle pressure. The RIGHT sided chest wall was prepped with chlorhexidine and draped in the typical sterile fashion. 10 mL of 1% Lidocaine without epinephrine was used to anesthetize the skin down to the pleural space. Return of pleural fluid confirmed entry into the pleural space. Lidocaine was injected into the pleural space for increased anesthetization. Scalpel was used to make a small incision of the superficial tissue, parallel to the direction of the rib anatomy. The thoracentesis catheter was advanced over the rib into the pleural space. Entry into the pleural space was heralded by pleural fluid return into the syringe while under gentle aspiration. The catheter was advanced into the pleural space without resistance. Using the one-way valve system, a total of 2100 mL of sarah fluid was removed. Procedure was terminated due to patient cough. The catheter was quickly removed while patient exhaled completely. The catheter was observed to be intact. A sterile dressing was applied. Post procedure chest x-ray was ordered. Pleural fluid was sent for analysis. Blood Loss: Minimal Complications: None ost procedure Chest X-ray was ordered and reviewed by myself which demonstrated improved aeration with persistent effusion. No pneumothorax. Coding CPT Codes Pulmonary/Thoracic - Pulmonary and Thoracic: 68297 Thoracentesis w imaging ([id number]) [facility] [place] Procedure Codes (Charges) Pulmonary/Thoracic Procedure 1: Pulmonary and Thoracic: 25677 Thoracentesis w imaging
--- NOTE | 2023-09-22 08:47 | Pulmonary Consultation ---
Date of Consultation September 22, 2023 Assessment & Plan (1) Pleural effusion, right: (2) SOB (shortness of breath): (3) Multiple pulmonary nodules determined by computed tomography of lung: (4) History of tobacco abuse: Plan IMPRESSION: 67-year-old male with a significant past medical history of tobacco abuse, multiple pulmonary nodules, and dyspnea on exertion who presented with findings of acute RIGHT-sided pleural effusion with worsening dyspnea on exertion requiring pulmonary intervention. RECOMMENDATIONS: 1. RIGHT-sided pleural effusion - Patient presenting with dyspnea which is worse than his baseline. Chest x-ray followed by CTA concerning for large RIGHT-sided pleural effusion likely the culprit behind the patient's dyspnea and associated hypoxemia. He has had no fevers, chills, or recent upper respiratory infections. Lactate, procalcitonin, and white cell count are all negative to this point. Uncertain if this represents infectious process at this point. Certainly warrants thoracentesis for diagnostic and therapeutic purposes. Will send off the patient's fluid cultures as well as cytology in the setting of a patient with multiple pulmonary nodules and a significant smoking history. Will reassess lung on follow-up chest x-ray to evaluate any possible infiltrative processes that could be contributing as well. Would encourage incentive spirometry given the atelectatic portion of the lung which may help with degree of lung reinflation. 2. Shortness of breath - Worsening from the patient's baseline. Likely in the setting of acute RIGHT-sided effusion. Will reassess after thoracentesis. 3. Hypoxia - In the setting of large RIGHT-sided effusion. Again, will reassess after thoracentesis. Negative CTA noted. 4. Multiple pulmonary nodules - Nodules have been trended in the outpatient setting on an annual basis in a patient with significant smoking history. Most recent images from June of this year demonstrated stability of previously monitored nodules. Certainly concerning in a patient that is presenting with an abrupt onset of RIGHT-sided effusion. 5. History of tobacco abuse -has been cigarette free for greater than 3 years. Thank you for allowing us to participate in the care of this pleasant patient. From a pulmonary perspective, if the patient is improved and down to off his oxygen, is pulmonary fluid studies can be assessed and we can see him in follow- up next week in the office. Certainly I will defer disposition to the patient's primary service, but from a pulmonary perspective, he is nearing improvement and will likely be able to be discharged in the next 24 hours. Supervising Physician Co-Signing Physician Notes Patient seen and examined. EMR reviewed. Discussed with GÉNESIS and agree with assessment plan as noted. Rapid development of a new pleural effusion. Etiologies would be infectious, inflammatory, and malignant. Thoracentesis recommended and will proceed for symptomatic relief as well as characterization of pleural fluid. Depending on post thoracentesis radiograph, the patient may be able to be dismissed from the hospital with outpatient workup and follow-up. The recommendations and plan were discussed with the patient. Will await characterization of pleural fluid History of Present Illness Reason for Consultation: new R pleural effusion Requesting Physician: Dr. Calle Attending Physician: Naty Cooper MD History of Present Illness Patient is a 67-year-old male with a significant past medical history of multiple pulmonary nodules, history of tobacco abuse, morbid obesity, hypertension, hypothyroidism, and dyspnea on exertion who is well-established with the pulmonary clinic. His last pulmonary function testing was performed on 12/02/2022 and demonstrates a relatively nonspecific spirometric pattern without obstructive physiology appreciated. He had been previously maintained on Advair which was changed to Wixela during prior visit secondary to insurance authorization. Additionally, the patient had been monitored for multiple pulmonary nodules. Most recent low-dose CT scan performed on 07/01/2023 showed stability in pulmonary nodules without new or suspicious lesions appreciated. Patient does report some baseline dyspnea on exertion which did improve with a 45 pound weight loss when starting Ozempic. He reports that he had been doing well up until the end of last week when he noticed significant dyspnea with ambulation to and from the restroom. He had been on the phone with a friend who noticed a change in his voice and encouraged him to seek medical attention. Upon evaluation in the emergency department, the patient was noted to have a large RIGHT-sided effusion which was new since CT scan in June of this year. There was no fever. No leukocytosis. Procalcitonin and lactate were unremarkable. Patient reports that his symptoms were relatively abrupt in onset towards the end of last week. He had had no fever or sequela of upper respiratory symptoms precipitating this. He has not had orthopnea. No peripheral edema noted. No chest pain or palpitations. No lightheadedness or presyncope. No fever or night sweats. No unintentional weight loss. No hemoptysis noted. Patient has never had similar symptoms in the past. He has never undergone thoracentesis or other interventions from a pulmonary perspective. Other than shortness of breath, he offers no complaints today. Allergies Allergy/AdvReac Type Severity Reaction Status Date / Time No Known Allergies Allergy Verified 09/21/23 19:03 Home Medications Medication Instructions Recorded Confirmed Type ascorbic acid (vitamin C) 1,000 mg 1 g PO QAM 11/05/18 09/21/23 History tablet (Vitamin C) glucosamine sulf dipot 1 cap PO QAM 11/05/18 09/21/23 History chlr,msm,chond 550 mg-C 30 mg-allie 1 mg capsule (Glucosamine Chondroitin) omega 4-suy-gbm-fish oil 1,000 mg 1 cap PO QAM 11/05/18 09/21/23 History (120 mg-180 mg) capsule (Fish Oil) saw palmetto 450 mg capsule 450 mg PO QAM 11/05/18 09/21/23 History zinc gluconate 100 mg tablet 100 mg PO QAM 11/05/18 09/21/23 History pzbffic-ugkrlbjectvzo-dwrdnppn 250 1 tab PO DIRECTED PRN HEADACHES 07/04/22 09/21/23 History mg-250 mg-65 mg tablet (Excedrin Extra Strength) ibuprofen 200 mg tablet 400 mg PO BID PRN Pain 07/08/22 09/21/23 History albuterol sulfate 90 mcg/actuation 1 inh inhalation QID PRN Shortness 12/25/22 09/21/23 History aerosol inhaler Of Breath Or Wheezing bupropion HCl 450 mg 24 hr tablet, 450 mg PO DAILY #90 tabs 07/02/23 09/21/23 Rx extended release levothyroxine 25 mcg tablet 25 mcg PO QAM #90 tabs 07/02/23 09/21/23 Rx lisinopril 10 mg tablet 10 mg PO QAM #90 tabs 07/02/23 09/21/23 Rx testosterone 1 % (50 mg/5 gram) 1 packet transdermal DAILY #150 07/02/23 09/21/23 Rx transdermal gel packet grams diazepam 5 mg tablet 5 mg PO QID PRN Anxiety #120 tabs 07/14/23 09/21/23 Rx fluticasone 100 mcg-salmeterol 50 1 inh inhalation BID #3 Inhalers 07/24/23 09/21/23 Rx mcg/dose blistr powdr for inhalation (Wixela Inhub) gabapentin 100 mg capsule 100 mg PO TID #60 caps 07/30/23 09/21/23 Rx diclofenac potassium 50 mg tablet 50 mg PO TID PRN pain #30 tabs 08/18/23 09/21/23 Rx sertraline 100 mg tablet 150 mg (1.5 x 100 mg) PO QAM #45 08/28/23 09/21/23 Rx tabs Patient History Medical History Vomiting Abdominal pain Kidney lesion, [place], left Dyspnea Positive colorectal cancer screening using Cologuard test Dyspnea on exertion History of tobacco abuse Multiple pulmonary nodules determined by computed tomography of lung Lumbar vertebral fracture r/t recent fall. (~06/23/20) Per 06/23/[address] scan= " Subtle age-indeterminate fracture along the left lateral inferior endplate of T11 extending into a left lateral osteophyte. Likely chronic fracture of a left lateral osteophyte at L2. No acute compression deformity or retropulsion identified." H/O retained foreign body fully removed splinter from left arm Positive colorectal cancer screening using Cologuard test Encounter for pre-operative examination Osteoarthritis Hypothyroidism Prediabetes Melanoma of back Depression Hypertension Sleep apnea cpap Melanoma Anxiety and depression Surgical History S/P rotator cuff surgery History of total right hip replacement History of colonoscopy History of Mohs micrographic surgery for skin cancer History of wisdom tooth extraction Family History Aunt Family history of diabetes mellitus Father Lung cancer Grandfather Stroke Myocardial infarction Grandmother Stroke Myocardial infarction Other No family history of adverse response to anesthesia Denies family history of Ovarian cancer Prostate cancer Breast cancer Colorectal cancer Social History Smoking Status: Former smoker Tobacco Type: Cigarettes Age Started Using Tobacco: 20; Age Quit Using Tobacco: 62; packs per day: 0.5; Cigarettes Per Day: 10; Smoking End Date: 3 years ago; Second Hand Exposure: No; Do You Dip or Chew Tobacco: No; Tobacco Cessation Education Requested by Patient: No Hx Alcohol Use: No Hx Substance Use: No Preferred Language: Dominican Communication Ability: Effective Visual Impairment: Partially Limited Electrostatic Painter Required: No Beliefs That Will Affect Care: None Current Living Situation: Alone current occupational status: retired How many Children do You have: 0 Other Information That Helps Us Care for You: No Feels Safe at Home: Yes Safety Concerns: Feels Safe At This Time Childhood Exposure to Second-Hand Smoke: No caffeine: Yes Dental Care, Regularly: Yes Physical Activity Frequency: Does not Exercise Seatbelt Use: always Sunscreen Use: No Assistive Devices: CPAP and Glasses Review of Systems Review of Systems: A complete 10 point review of systems was reviewed with the patient with pertinent positives and negatives as per history of present illness. All else were negative. Physical Exam Physical Exam: VITAL SIGNS - Vital signs and nursing notes were reviewed. GENERAL - 67-year-old male appearing his stated age who is in no acute distress. Communicates well with provider and answers questions appropriately. SKIN - Without rashes or lesions. NOSE - Midline and without cyanosis. MOUTH/OROPHARYNX - Without perioral cyanosis. NECK - Neck with FROM. LUNGS - Chest wall evaluation demonstrates normal chest wall A:P diameter. Auscultation reveals decreased breath sound on the RIGHT sided lung field. No wheezes appreciated. CARDIAC - RRR with S1/S2. No murmur, rubs, or gallops appreciated. ABDOMEN - Abdominal inspection demonstrates an obese abdomen. BS normoactive all four quadrants. No tenderness, palpable masses, or ascites noted. EXTREMITIES - Nail clubbing not present. No peripheral cyanosis. No pretibial edema present. +3/5 radial palpated throughout. PSYCH - A&Ox3 and cooperates fully with examiner. Pt is very pleasant and interacts well with examiner. Results & Data Results & Data Vital Signs (Past 12 Hours) Vital Signs Temp Pulse Pulse Resp BP Pulse Ox O2 Del Method 09/22/23 07:58 36.6 C 67 19 174/89 H 94 Nasal Cannula 09/22/23 07:41 Nasal Cannula 09/22/23 03:38 36.7 C 70 18 187/101 H 95 Nasal Cannula 09/22/23 00:37 62 09/21/23 22:00 62 09/21/23 21:06 36.7 C 63 18 165/83 H 94 Nasal Cannula 09/21/23 21:02 Nasal Cannula 09/21/23 21:02 Nasal Cannula O2 Flow Rate 09/22/23 07:58 2 09/22/23 07:41 2 09/22/23 03:38 2.0 09/22/23 00:37 09/21/23 22:00 09/21/23 21:06 2 09/21/23 21:02 2 09/21/23 21:02 2 PG Care Time/CCT Total # of Minutes Spent Total Time Spent with Patient: Total time spent is greater than 50% in coordination of care (as documented) at patient's floor/unit and/or counseling patient: Coding Level of Care Code 50614 INT INP/OBS CARE 3/75MIN Diagnoses Pleural effusion, right J90 SOB (shortness of breath) R06.02 Multiple pulmonary nodules determined by computed tomography of lung R91.8 History of tobacco abuse Z87.895
[2023-09-22] MEDS: ACETAMINOPHEN 325 MG TAB PO PRN (08:49)
[2023-09-22] MEDS ORDERED: NON-FORMULARY MEDICATION (Saw Palmetto 450 mg Capsule) PO SCH (09:00)
[2023-09-22 09:39] LABS: Total Protein Pleural Fluid 4.1 gm/dl
--- NOTE | 2023-09-22 09:39 | XRay Report ---
XR chest 1V portable CLINICAL HISTORY: S/P Thoracentesis TECHNIQUE: Single frontal radiograph of the chest was obtained. Comparison: Comparison is made to chest radiograph 09/21/[address] chest 09/21/2023 FINDINGS: No lines and tubes are seen. Cardiomegaly is noted. Interval improvement in right lower lung airspace opacity. Small right pleural effusion is seen. IMPRESSION: Small right pleural effusion is seen, decreased from prior exam. No pneumothorax is seen status post thoracentesis. Underlying airspace opacity likely representing atelectasis has also improved. ACT 112: Negative or not required by law. Electronically signed by: Say Duffy M.D. 09/22/2023 9:37 AM
[2023-09-22 10:01] LABS: Total Protein 6.6 gm/dl (6.0-8.3)
[2023-09-22 11:11] LABS: Appearance Pleural Fluid Cloudy; Basophils, Fluid 4 %; Color Pleural Fluid Amber; Eosinophils, Fluid 47 %; Lymphocytes, Fluid 33 %; Mono,Macrophage,Mesothelial 14 %; Neutrophils, Fluid 2 %; RBC Pleural Fluid Auto 9000 /uL; Source Pleural Fluid Right Lung; WBC Pleural Fluid Auto 1310 /uL
--- NOTE | 2023-09-22 16:33 | Hospitalist Progress Note ---
Date of Service September 22, 2023 Assessment & Plan (1) Pleural effusion, right: (2) Multiple pulmonary nodules determined by computed tomography of lung: (3) History of tobacco abuse: (4) Dyspnea on exertion: (5) COPD (chronic obstructive pulmonary disease): (6) GERD (gastroesophageal reflux disease): (7) Hypertension: (8) Mood disorder: (9) Impaired glucose tolerance: (10) Hypothyroidism: Plan Large right pleural effusion/known pulmonary nodules/tobacco abuse history- Primary symptom that of worsening dyspnea on exertion especially in the past couple days Pleural effusion is new compared to 08/18/2023 Not likely to improve with furosemide Will consult his digital director Dr. Quevedo Would likely benefit from thoracentesis for diagnostic and therapeutic purposes Will defer thoracentesis to Dr. Quevedo or interventional IR to perform Nasal cannula oxygen, titrate to keep pulse ox 92-94% He did receive a single dose of Zosyn 4.5 g IV from the ED [employer] testing negative D-dimer 1600, with CTA negative for PE Continue routine inhalers DuoNebs every 2 hours as needed N.p.o. after midnight s/p thoracentesis follow up on cytology obtain ECHO , BNP Mood disorder- Continue sertraline, gabapentin and bupropion Hypotestosteronism- Testosterone transdermal gel to continue Admission and Anticipated Discharge Date Admission Date: September 21, 2023 Subjective reports SOB, intentional weight loss Review of Systems Review of Systems: All systems reviewed & are unremarkable except as noted in HPI & below Physical Exam Physical Exam: head atraumatic neck supple chest decreased breath sounds at right base heart s1s2 regular abdomen soft, soft, nt, nd, bs present extremities no edema neuro AAO times 3 Results & Data Results & Data Vital Signs (Past 12 Hours) Vital Signs Temp Pulse Resp BP Pulse Ox O2 Del Method O2 Flow Rate 09/22/23 16:00 Room Air 09/22/23 15:47 36.3 C L 71 19 156/86 H 94 Room Air 09/22/23 12:22 36.9 C 71 20 175/82 H 94 Room Air 09/22/23 11:12 94 Nasal Cannula 1 09/22/23 09:00 127/61 09/22/23 07:58 36.6 C 67 19 174/89 H 94 Nasal Cannula 2 09/22/23 07:41 Nasal Cannula 2 PG Care Time/CCT Total # of Minutes Spent Total Time Spent with Patient: Total time spent is greater than 50% in coordination of care (as documented) at patient's floor/unit and/or counseling patient: Coding Level of Care Code 14088 SUB INP/OBS CARE 2/35MIN Diagnoses Pleural effusion, right J90 Multiple pulmonary nodules determined by computed tomography of lung R91.8 History of tobacco abuse Z87.891 Dyspnea on exertion R06.00 COPD (chronic obstructive pulmonary disease) J44.9 GERD (gastroesophageal reflux disease) K21.9 Hypertension I10 Mood disorder F39 Impaired glucose tolerance R73.02 Hypothyroidism E03.9
--- NOTE | 2023-09-22 22:14 | XCELERA ---
[id number]
--- NOTE | 2023-09-23 05:45 | Electrocardiogram Report ---
Test Reason : Blood Pressure : / mmHG Vent. Rate : 075 BPM Atrial Rate : 075 BPM P-R Int : 138 ms QRS Dur : 086 ms QT Int : 396 ms P-R-T Axes : 063 024 042 degrees QTc Int : 442 ms Normal sinus rhythm Nonspecific ST abnormality When compared with ECG of 15-NOV-2022 18:48, Minimal criteria for Anterior infarct are no longer Present Confirmed by Art Peters ([id number]) on 09/23/2023 5:45:32 AM Referred By: NO PCP Confirmed By:Art Peters
[2023-09-23 06:52] LABS: Basophils # (auto) 0.06 K/uL (0.00-0.20); Basophils % (auto) 0.8 %; Eosinophils # (auto) 0.71 K/uL (0.00-0.50); Eosinophils % (auto) 8.9 %; Hematocrit (blood only) 40.6 % (42.0-52.0); Hemoglobin 13.5 g/dl (14.0-18.0); Immature Granulocytes # (auto) 0.03 K/uL (0.01-0.20); Immature Granulocytes % (auto) 0.4 %; Lymphocytes # (auto) 2.09 K/uL (1.20-3.40); Lymphocytes % (auto) 26.3 %; Mean Corpuscular Hemoglobin 30.4 pg (25.0-34.0); Mean Corpuscular Hgb Conc 33.3 g/dL (32.0-36.0); Mean Corpuscular Volume 91.4 fL (80.0-100.0); Mean Platelet Volume 9.9 fL (9.4-12.4); Monocytes # (auto) 0.72 K/uL (0.11-0.59); Monocytes % (auto) 9.1 %; Neutrophils # (auto) 4.33 K/uL (1.40-6.50); Neutrophils % (auto) 54.5 %; Platelet Count 339 K/uL (130-400); RDW Coefficient of Variation 12.5 % (11.5-14.5); RDW Standard Deviation 41.5 fL (36.4-46.3); Red Blood Count 4.44 M/uL (4.70-6.10); White Blood Count 7.94 K/ul (4.8-10.8)
[2023-09-23 07:03] LABS: Albumin Globulin Ratio 1.2 (0.9-2); Albumin Level 3.4 gm/dl (3.4-5.0); BUN Creatinine Ratio 11.8 (10-20); Bilirubin,Total 0.5 mg/dl (0.2-1.0); Calcium 8.7 mg/dl (8.6-10.3); Est GFR (African American) 108.7 ml/min; Est GFR (Non-African American) 93.7 ml/min; Globulin 2.9 gm/dl (2.5-4.0); Magnesium 1.9 mg/dl (1.7-2.4); Potassium 3.6 mmol/L (3.5-5.1); Total Protein 6.3 gm/dl (6.0-8.3)
[2023-09-23 07:13] LABS: INR 1.1 (0.9-1.1); Partial Thromboplastin Ratio 1.2; Partial Thromboplastin Time 33 Seconds (21-31); Prothrombin Time 11.9 Seconds (9.0-12.0)
--- NOTE | 2023-09-23 08:40 | Pulmonology Progress Note ---
Date of Service September 23, 2023 Assessment & Plan (1) Pleural effusion, right: (2) SOB (shortness of breath): (3) Multiple pulmonary nodules determined by computed tomography of lung: (4) History of tobacco abuse: Plan IMPRESSION: 67-year-old male with a significant past medical history of tobacco abuse, multiple pulmonary nodules, and dyspnea on exertion who presented with findings of acute RIGHT-sided pleural effusion with worsening dyspnea on exertion status post thoracentesis. It was eosinophilic and exudative. Cytology was negative preliminary RECOMMENDATIONS: 1. Eosinophilic pleural effusion: Preliminary cytology negative. Do not see evidence of acute eosinophilic or chronic eosinophilic pneumonia. Churg-Lisa seems unlikely. Rheumatoid arthritis is less likely as well although possible. Do not see an offending drug and the patient has not started new medications. No history of trauma or prior thoracic intervention or pneumothorax. As there was residual fluid present, we will plan on repeating thoracentesis today with repeat cytology. Patient does have about 9 to 10% peripheral eosinophils on his smear. Will check ANCA and AIRAM screen and reflex as well as rheumatoid factor and anti-CCP given his pulmonary nodules. 2. Shortness of breath -back to baseline 3. Hypoxia -resolved 4. Multiple pulmonary nodules -unclear if these could be related to the eosinophilic pleural effusion. 5. History of tobacco abuse -has been cigarette free for greater than 3 years. This point in time the patient can be dismissed from the hospital from pulmonary perspective. He should follow-up in the pulmonary office with Dr. Quevedo in 1-2 weeks with a follow up CXR Admission and Anticipated Discharge Date Admission Date: September 21, 2023 Subjective Patient seen and examined. EMR reviewed. Images independently reviewed. The patient is doing well. He is off oxygen. He is not coughing. No chest pain. He overall feels well. He has not had any fevers chills or night sweats overnight. He remained significantly hypertensive. No significant changes overnight Review of Systems 2 Review of Systems: All systems reviewed & are unremarkable except as noted in Subjective Physical Exam 2 Constitutional: WD/WN, vitals as above Neck: trachea midline, no thyromegaly Respiratory: no respiratory distress, no labored breathing, no cough and not tachypneic Auscultation: + diminished lung sounds Decreased breath sounds at the right lung base. Prior thoracentesis site clean dry and intact Cardiovascular: RRR, no murmur, no edema Gastrointestinal (Abdomen): normal bowel sounds, soft, nontender, no hepatosplenomegaly Musculoskeletal: Extremities: extremities normal to inspection Skin: no rashes, warm and dry Neurologic: Nonfocal exam Lymphatic: no cervical lymphadenopathy Results & Data Results & Data Vital Signs (Past 12 Hours) Vital Signs Temp Pulse Pulse Resp BP Pulse Ox O2 Del Method 09/23/23 07:42 36.9 C 71 18 173/72 H 95 Room Air 09/23/23 07:40 78 09/23/23 03:45 36.7 C 66 154/75 H 94 Room Air 09/23/23 02:20 67 09/22/23 23:22 36.8 C 71 162/83 H 94 Room Air Laboratory Results 09/23/23 05:50 09/23/23 05:50 Pleural fluid studies: Differential: 2% neutrophils, 33% lymphocytes, 47% eosinophils, 4% basophils and 14% mesothelial cells pH 7.5 Total protein 4.1 LDH 122 Glucose 92 Gram stain showed mononucleated cells with rare polys and no organisms, cultures pending AFB stains and cultures pending Diagnostic Findings Post procedure chest x-ray was independently reviewed. It demonstrated persistent effusion on the right without evidence of pneumothorax. PG Care Time/CCT Total # of Minutes Spent Total Time Spent with Patient: Total time spent is greater than 50% in coordination of care (as documented) at patient's floor/unit and/or counseling patient: Coding Level of Care Code 83490 SUB INP/OBS CARE 3/50MIN Diagnoses Pleural effusion, right J90 SOB (shortness of breath) R06.02 Multiple pulmonary nodules determined by computed tomography of lung R91.8 History of tobacco abuse Z87.891
--- NOTE | 2023-09-23 08:43 | XRay Report ---
XR chest 1V portable HISTORY: 67 years-old Male f/u acute shortness of breath COMPARISON: 09/22/2023 TECHNIQUE: AP view of the chest FINDINGS: Cardiomediastinal and hilar silhouettes are unchanged. Dense right midlung and right basilar consolid ation redemonstrated which has not significantly changed. Stable right pleural effusion. No pneumotho rax. The left lung is generally clear. Bones appear grossly intact. IMPRESSION: Unchanged consolidative right lung opacities with associated right pleural effusion. ACT 112: Negative or not required by law. The above report was generated using voice recognition software. It may contain grammatical, syntax o r spelling errors. Electronically signed by: Bobby Yanez M.D. 09/23/2023 8:42 AM
--- NOTE | 2023-09-23 08:47 | Procedure Note ---
Procedure Note Date of Service September 23, 2023 Note Procedure: Diagnostic therapeutic ultrasound-guided catheter thoracentesis, right Joint Runner: Dr. Rajat Manzano Indication: Pleural effusion Consent: Signed by patient and verified with timeout prior to procedure Anesthesia: 10 mL's 1% lidocaine without epinephrine local. Procedure: Consent was verified and timeout performed. Appropriate imaging studies were reviewed prior to the procedure. Patient was placed in a seated position and limited thoracic ultrasound was performed of the right chest. A persistent pocket of fluid was identified. Site appropriate for thoracentesis was selected. The skin was prepped and draped in normal sterile fashion. Lidocaine was used for local analgesia. Fluid was aspirated via the finder needle. A small skin michelle was made with the scalpel and the catheter over the needle apparatus was advanced over the rib into the pleural space. Using the syringe one-way valve system, a total of 1600 mL's of dark sarah fluid was removed. Procedure was terminated due to inability to withdraw additional fluid. The catheter was removed and observed to be intact. A sterile dressing was applied. Post procedure chest x-ray was ordered. Fluid was sent for repeat. The patient tolerated the procedure well without obvious complication Coding CPT Codes Pulmonary/Thoracic - Pulmonary and Thoracic: 37349 Thoracentesis w imaging ( [id number]) [facility] [place] Procedure Codes (Charges) Pulmonary/Thoracic Procedure 1: Pulmonary and Thoracic: 65542 Thoracentesis w imaging
--- NOTE | 2023-09-23 09:11 | XRay Report ---
XR chest 1V portable HISTORY: 67 years-old Male S/P Thoracentesis COMPARISON: Chest radiograph of same day at 7:47 AM TECHNIQUE: AP view of the chest FINDINGS: The cardiomediastinal and hilar silhouettes are unchanged. Decreased size of the right pleural effusi on status post thoracentesis. No postprocedural pneumothorax. Improved aeration of the right lung wit h persistent right midlung and right basilar consolidation. Bones appear grossly intact. IMPRESSION: No postprocedural pneumothorax. ACT 112: Negative or not required by law. The above report was generated using voice recognition software. It may contain grammatical, syntax o r spelling errors. Electronically signed by: Bobby Yanez M.D. 09/23/2023 9:10 AM
--- NOTE | 2023-09-23 12:17 | Discharge Summary ---
Date of Service September 23, 2023 Admission HPI Per Admitting Provider The patient is a 67-year-old male with past medical history including COPD, cervical disc disease, small vessel disease, history of tobacco abuse, hypothyroidism, mood disorder, hypertension, GERD, multiple pulmonary nodules followed routinely by pulmonology. The patient presents to the emergency department with worsening shortness of breath, and was noted to have a chest x- ray this visit showing a large right pleural effusion, that is new since 08/18/2023. Patient denies any recent travels or sick exposures, and has not had these symptoms in the past. He does follow regularly with pulmonology, for follow-up of pulmonary nodules, and was last seen on 07/22/2023. Principal Diagnosis right pleural effusion Discharge Exam head atraumatic neck supple chest decreased breath sounds at right base heart s1s2 regular abdomen soft, soft, nt, nd, bs present extremities no edema neuro AAO times 3 Discharge Data Allergies Allergy/AdvReac Type Severity Reaction Status Date / Time No Known Allergies Allergy Verified 09/21/23 19:03 Consultations 09/21/23 19:20 ED Decision to Admit Stat 09/21/23 21:06 Consult Pulmonology Routine Ordered Studies 09/21/23 18:02 CT angio chest PE protocol Stat Hospital Course (1) Pleural effusion, right: (2) Multiple pulmonary nodules determined by computed tomography of lung: (3) History of tobacco abuse: (4) Dyspnea on exertion: (5) COPD (chronic obstructive pulmonary disease): (6) GERD (gastroesophageal reflux disease): (7) Hypertension: (8) Mood disorder: (9) Impaired glucose tolerance: (10) Hypothyroidism: Plan Large right pleural effusion/known pulmonary nodules/tobacco abuse history- Primary symptom that of worsening dyspnea on exertion especially in the past couple days Pleural effusion is new compared to 08/18/2023 Not likely to improve with furosemide Will consult his glove sewer Dr. Quevedo Would likely benefit from thoracentesis for diagnostic and therapeutic purposes Will defer thoracentesis to Dr. Quevedo or interventional IR to perform Nasal cannula oxygen, titrate to keep pulse ox 92-94% He did receive a single dose of Zosyn 4.5 g IV from the ED [employer] testing negative D-dimer 1600, with CTA negative for PE Continue routine inhalers DuoNebs every 2 hours as needed N.p.o. after midnight s/p thoracentesis follow up on cytology obtain ECHO , BNP Mood disorder- Continue sertraline, gabapentin and bupropion Hypotestosteronism- Testosterone transdermal gel to continue patient underwent thoracentesis times 2 , 2100 ml was removed on 09/21 and 1600 ml was removed on 09/22, tolerated procedure well, acute respiratory failure with hypoxia resolved, he reports feeling much better, he has a follow up appointment with glove sewer. ECHO no signs of diastolic or systolic dysfunction,BNP is low. Will increase his BP meds due to elevated blood pressure, stable for discharge. Total Time Total Time Spent Total Time Spent (In Minutes): 40 min Discharge Plan Discharge Items Patient Disposition: Home - Self-Care Reason For Visit: NEW E PLEURAL EFFUSION, DYSPNEA, HYPOXIA Discharge Diagnosis: right pleural effusion Activity: Resume your previous activity Non-emergency contact: Primary Care Provider and Emulsification Operator Call non-emergency contact if: your symptoms worsen Follow-up/Referrals: Rene Quevedo MD [Physician] - 10/01/23 1:30 pm (with Caio Ruiz PA-C. ) Ming Cole MD [Primary Care Provider] - 09/26/23 10:15 am (with Yeny Murillo PA-C. ) Diet: Heart Healthy Addtl Attending Provider Instructions: follow up with glove sewer on cytology results Pending Studies at Discharge: Yes Stand-Alone Forms: My [facility] [place], Smoking Cessation Medications and DC Order Prescriptions: New lisinopril-hydrochlorothiazide 20-12.5 mg tablet 1 tab PO DAILY Qty: 30 0RF Continued bupropion HCl 450 mg tablet extended release 24 hr 450 mg PO DAILY Qty: 90 3RF levothyroxine 25 mcg tablet 25 mcg PO QAM Qty: 90 3RF testosterone 1 % (50 mg/5 gram) gel in packet 1 packet transdermal DAILY MDD 50mg Qty: 150 3RF diazepam 5 mg tablet 5 mg PO QID PRN (Reason: Anxiety) Qty: 120 5RF fluticasone propion-salmeterol [Wixela Inhub] 100-50 mcg/dose blister with device 1 inh inhalation BID Qty: 3 3RF sertraline 100 mg tablet 150 mg PO QAM Qty: 45 0RF albuterol sulfate 90 mcg/actuation HFA aerosol inhaler 1 inh inhalation QID PRN (Reason: Shortness Of Breath Or Wheezing) diclofenac potassium 50 mg tablet 50 mg PO TID PRN (Reason: pain) Qty: 30 1RF gabapentin 100 mg capsule 100 mg PO TID Qty: 60 2RF ibuprofen 200 mg tablet 400 mg PO BID PRN (Reason: Pain) ascorbic acid (vitamin C) [Vitamin C] 1,000 mg Tablet 1 g PO QAM saw palmetto 450 mg Capsule 450 mg PO QAM omega 7-oct-cmw-fish oil [Fish Oil] 1,000 mg (120 mg-180 mg) Capsule 1 cap PO QAM Glucosamine Chondroitin 550-30-1 mg Capsule 1 cap PO QAM Excedrin Extra Strength 250-250-65 mg Tablet 1 tab PO DIRECTED PRN (Reason: HEADACHES) Discontinued lisinopril 10 mg tablet 10 mg PO QAM Qty: 90 3RF zinc gluconate 100 mg Tablet 100 mg PO QAM Discharge Orders: Discharge Order (Routine); Ordered 09/23/23 Ordered By: Naty Cooper Admission Data Admit Date/Time: 09/21/23 20:00 Attending Provider: Naty Cooper Admit Provider: Harpreet Calle Primary Care Provider: Ming Cole Other Providers: Harpreet Calle; Rene Quevedo Other Interventions: Discharge Summary Assessment (RN) Last Done: 09/23/23 10:26 Coding Level of Care Code 60998 INP/OBS DISCH >30 MIN Diagnoses Pleural effusion, right J90 Multiple pulmonary nodules determined by computed tomography of lung R91.8 History of tobacco abuse Z87.891 Dyspnea on exertion R06.00 COPD (chronic obstructive pulmonary disease) J44.9 GERD (gastroesophageal reflux disease) K21.9 Hypertension I10 Mood disorder F39 Impaired glucose tolerance R73.02 Hypothyroidism E03.9
[2023-09-27 00:47] LABS: ANCA Screen Negative (Negative); Anti Nuclear Antibody Screen POSITIVE (NEGATIVE); Cyclic Citrullinated Pep IgG <16 UNITS; Myeloperoxidase Ab <1.0 AI (<1.0); Proteinase-3 AB <1.0 AI (<1.0); Rheumatoid Factor <14 IU/mL (<14)
== END 2023-09-23 12:50 | disposition home or self-care (01) | DRG 180 ==
LOC: ED 17:29 → SUATTDRO 20:00 → 4W 20:00
DX: E29.1 Testicular hypofunction; Z80.1 Family history of malignant neoplasm of trachea, bronchus and lung; Z79.899 Other long term (current) drug therapy; K21.9 Gastro-esophageal reflux disease without esophagitis; R91.8 Other nonspecific abnormal finding of lung field; I10 Essential (primary) hypertension; E03.9 Hypothyroidism, unspecified; C34.90 Malignant neoplasm of unspecified part of unspecified bronchus or lung; R73.02 Impaired glucose tolerance (oral); F39 Unspecified mood [affective] disorder; Z87.891 Personal history of nicotine dependence; J44.9 Chronic obstructive pulmonary disease, unspecified; R06.02 Shortness of breath; J96.01 Acute respiratory failure with hypoxia; Z79.890 Hormone replacement therapy; J91.0 Malignant pleural effusion